=== PATIENT | female | born 1990 | race Two or more races ===

== ENCOUNTER 2016-08-16 03:25 | Emergency (ER) | payer SELFPAY ==
[~2016-08-16] VITALS: Ht 165.1 cm; Wt 99.8 kg
[2016-08-16] MEDS ORDERED: ONDANSETRON HCL/PF 4 MG/2 ML VIAL ONE (03:44)
[2016-08-16] MEDS ORDERED: HALOPERIDOL LACTATE INJ 5 MG/ML VIAL ONE (03:53)
[2016-08-16] MEDS ORDERED: diphenhydrAMINE HCL 50 MG/ML VIAL ONE (03:53)
[2016-08-16] MEDS ORDERED: LORAZEPAM INJ 2 MG/ML VIAL ONE (03:54)
[2016-08-16] MEDS ORDERED: HALOPERIDOL LACTATE INJ 5 MG/ML VIAL IM ONE (04:00)
[2016-08-16] MEDS ORDERED: LORAZEPAM INJ 2 MG/ML VIAL IM ONE (04:00)
[2016-08-16] MEDS ORDERED: diphenhydrAMINE HCL 50 MG/ML VIAL IM ONE (04:00)
[2016-08-16] MEDS ORDERED: IV NS 0.9% 1,000 ML BAG IV ONE (05:30)
[2016-08-16] MEDS ORDERED: IV NS 0.9% 1,000 ML ONE (05:36)
[2016-08-16] MEDS ORDERED: IV SET PRIMARY 1 EA INFUS.SET MC ONE (05:36)
[2016-08-16 09:17] VITALS: BP 104/60
== END 2016-08-16 09:18 | disposition home or self-care (01) ==
LOC: ER 03:29
DX: F10.129 Alcohol abuse with intoxication, unspecified (principal); R79.89 Other specified abnormal findings of blood chemistry
CPT/HCPCS: 82962; 96360; 96372 ×3; 99284; A4606; J1200; J1630; J2060; J2405; J7030; Z7610